=== PATIENT | male | born 1960 | race Caucasian/White ===

== ENCOUNTER → 2021-07-03 | Outpatient (CLI) | payer BC, OTHER ==
[2021-07-04 13:13] LABS: RHEUMATOID ARTHRITIS FACTOR <10.0 IU/mL (0.0-13.9)
== END ==
LOC: LAB 13:15
PROVIDERS: Internal Medicine
DX: M25.50 Pain in unspecified joint (principal); M25.579 Pain in unspecified ankle and joints of unspecified foot; G89.29 Other chronic pain; M79.643 Pain in unspecified hand; R93.6 Abnormal findings on diagnostic imaging of limbs
CPT/HCPCS: 36415; 73130; 83520; 85652; 86140; 86200; 86431